=== PATIENT | female | born 1970 | race Caucasian/White ===

== ENCOUNTER → 2016-08-25 16:42 | Outpatient (CLI) | payer MEDICAID | END | disposition home or self-care (01) | LOC: D.MAMMO 10:15 | DX: Z12.31 Encounter for screening mammogram for malignant neoplasm of breast (principal) ==

== ENCOUNTER → 2017-03-23 08:21 | Outpatient (CLI) | payer MEDICAID | END | disposition home or self-care (01) | LOC: D.CT 08:21 | DX: R93.8 Abnormal findings on diagnostic imaging of other specified body structures (principal) ==

== ENCOUNTER → 2017-03-29 20:29 | Outpatient (CLI) | payer MEDICAID | END | disposition home or self-care (01) | LOC: D.LABREF 20:29 | PROVIDERS: Internal Medicine Pulmonary Disease | DX: R91.1 Solitary pulmonary nodule (principal) ==

== ENCOUNTER → 2017-06-16 08:25 | Outpatient (CLI) | payer MEDICAID | END | disposition home or self-care (01) | LOC: D.RT 08:25 | DX: R91.8 Other nonspecific abnormal finding of lung field (principal) ==

== ENCOUNTER → 2017-12-18 09:42 | Outpatient (CLI) | payer MEDICAID | END | disposition home or self-care (01) | LOC: D.CT 09:42 | DX: R91.8 Other nonspecific abnormal finding of lung field (principal) ==

== ENCOUNTER → 2018-08-14 08:43 | Outpatient (CLI) | payer MEDICAID | END | disposition home or self-care (01) | LOC: D.CT 08:43 | DX: R91.8 Other nonspecific abnormal finding of lung field (principal) ==

== ENCOUNTER 2019-02-25 08:00 | Outpatient (CLI) | payer MEDICAID | END 2019-02-25 23:59 | disposition home or self-care (01) | LOC: D.MAMMO 08:00 | PROVIDERS: ATTEND Clinical Nurse Specialist Adult Health | DX: Z12.31 Encounter for screening mammogram for malignant neoplasm of breast (principal) ==